=== PATIENT | female | born 1985 | race African-American/Black ===

== ENCOUNTER 2016-03-19 10:49 | Observation (INO) | payer OTHER | END 2016-03-19 11:40 | disposition home or self-care (01) | LOC: 3 SO LND 10:49 | PROVIDERS: ADMIT Family Medicine; ATTEND Family Medicine | DX: O41.03X0 Oligohydramnios, third trimester, not applicable or unspecified (principal); O09.299 Supervision of pregnancy with other poor reproductive or obstetric history, unspecified trimester; Z3A.36 36 weeks gestation of pregnancy | CPT/HCPCS: G0378; G0379 ==

== ENCOUNTER 2016-03-21 20:48 | Observation (INO) | payer OTHER ==
[2016-03-21] MEDS ORDERED: CEPHALEXIN 250 MG CAPSULE PO ONE (22:30)
== END 2016-03-21 22:42 | disposition home or self-care (01) ==
LOC: 3 SO LND 20:48
PROVIDERS: ADMIT Family Medicine; ATTEND Family Medicine
DX: O62.9 Abnormality of forces of labor, unspecified (principal); Z3A.36 36 weeks gestation of pregnancy
CPT/HCPCS: G0378; G0379

== ENCOUNTER 2016-03-30 12:31 | Observation (INO) | payer OTHER | END 2016-03-30 18:29 | disposition home or self-care (01) | LOC: 3 SO LND 12:31 | PROVIDERS: ADMIT Family Medicine; ATTEND Family Medicine | DX: O62.9 Abnormality of forces of labor, unspecified (principal); O26.853 Spotting complicating pregnancy, third trimester; O41.8X30 Other specified disorders of amniotic fluid and membranes, third trimester, not applicable or unspecified; Z3A.37 37 weeks gestation of pregnancy | CPT/HCPCS: G0378; G0379 ==

== ENCOUNTER 2016-04-04 08:25 | Inpatient (IN) | payer OTHER ==
[~2016-04-04] VITALS: Ht 154.9 cm; Wt 71.7 kg
[2016-04-04 09:18] VITALS: BP 134/62
[2016-04-04 09:29] LABS: NEG OBC AMNIO NEG; POS OBC AMNIO POS
[2016-04-04] MEDS ORDERED: IV RINGERS,LACTATED 1000ML 1,000 ML IV SCH (10:21)
[2016-04-04] MEDS ORDERED: BUTORPHANOL 2 MG VIAL. IV PRN (10:30)
[2016-04-04] MEDS ORDERED: TERBUTALINE 1 MG/ML VIAL. SQ PRN (10:30)
[2016-04-04] MEDS ORDERED: OXYTOCIN 30 UNIT/500 ML PREMIX 500 ML IV PRN ×2 (10:30→12:45)
[2016-04-04] MEDS ORDERED: LIDOCAINE 1% PF 30 ML VIAL. INJ PRN (10:30)
[2016-04-04] MEDS ORDERED: 0.9 % SODIUM CHLORIDE 10 ML DISP.SYRIN. IV PRN ×2 (10:30→12:45)
[2016-04-04] MEDS ORDERED: FENTANYL PF 100 MCG/2 ML VIAL. IV PRN (10:30)
[2016-04-04 10:49] VITALS: BP 134/62
[2016-04-04] MEDS ORDERED: OXYTOCIN in NORMAL SALINE PREMIX 30 UNIT/500 ML BAG. IV ONE (11:00)
[2016-04-04] MEDS ORDERED: AMPICILLIN 2 GM in IV NORMAL SALINE 100ML 100 ML IV ONE (11:00)
[2016-04-04] MEDS ORDERED: ROPIVacaine 0.2% IN 0.9%NACL PF 40 MG/20 ML DISP.SYRIN. ONE ×3 (11:00→11:42)
[2016-04-04] MEDS ORDERED: L&D EPIDURAL CASSETTE 100 ML PUMP.RESVR. EP ONE (11:00)
[2016-04-04 11:02] LABS: BASO # 0.1 x10^3/uL (0.0-0.2); BASO % 0 % (0-3); EOS % 0 % (0-3); HEMATOCRIT 38.8 % (36.0-47.0); HEMOGLOBIN 12.8 g/dL (12.0-15.5); LYMPH # 2.1 x10^3/uL (1.0-4.8); LYMPH % 13 % (24-48); MEAN CORPUSCULAR HEMOGLOBIN 29 pg (25-35); MEAN CORPUSCULAR HGB CONC 33 g/dL (31-37); MEAN CORPUSCULAR VOLUME 89 fL (79-100); MONO % 4 % (0-9); NEUT % 83 % (31-73); PLATELET COUNT 293 x10^3/uL (140-400); RED BLOOD COUNT 4.37 x10^6/uL (3.50-5.40); RED CELL DISTRIBUTION WIDTH 13.9 % (11.5-14.5); WHITE BLOOD COUNT 16.3 x10^3/uL (4.0-11.0)
[2016-04-04] MEDS ORDERED: L&D EPIDURAL CASSETTE 100 ML EP ONE (11:13)
[2016-04-04] MEDS ORDERED: MAGNESIUM HYDROXIDE 2,400 MG/30 ML ORAL.SUSP. PO PRN (12:45)
[2016-04-04] MEDS ORDERED: ZOLPIDEM 5 MG TABLET. PO PRN (12:45)
[2016-04-04] MEDS ORDERED: MAG HYDROX/AL HYDROX/SIMETH 30 ML ORAL.SUSP PO PRN (12:45)
[2016-04-04] MEDS ORDERED: BENZOCAINE 20% TOPICAL AEROSOL SPRAY 57GM CAN. TP PRN (12:45)
[2016-04-04] MEDS ORDERED: HYDROCORTISONE 1% TOPICAL OINTMENT 30GM TUBE. TP PRN (12:45)
[2016-04-04] MEDS ORDERED: HYDROCODONE/APAP 5/325MG TABLET. PO PRN ×2 (12:45)
[2016-04-04] MEDS ORDERED: SIMETHICONE 80 MG TAB.CHEW PO PRN (12:45)
[2016-04-04] MEDS ORDERED: ACETAMINOPHEN 325 MG TABLET. PO PRN (12:45)
[2016-04-04] MEDS ORDERED: PHENYLEPH/MINERAL OIL/PETROLAT RECTAL OINTMENT 28GM TUBE. RC PRN (12:45)
[2016-04-04] MEDS ORDERED: DIPHENHYDRAMINE HCL 25 MG CAPSULE PO PRN (12:45)
[2016-04-04] MEDS ORDERED: AMPICILLIN 1 GM in IV NORMAL SALINE 50ML 50 ML IV SCH (14:00)
--- NOTE | 2016-04-04 14:21 | PDOC1 ---
OB - History Hx of Present Care: Good Care Ultrasounds: Abnormal US findings (low alex) Obstetrical Complications: None Medical Complications: None Other Concerns: History of labor. demise at 28 weeks Past Family/Social History * Past Medical, Surgical, Family and Obstetric Histories reviewed from chart. Blood Type: B+ Rubella: Immune RPR/VDRL: Negative GBS Status: Positive HBsAG: Negative OB - Chief Complaint & HPI Date of Admission: Date of Admission: Apr 04, 2016 at 08:25 Chief Complaint/History : 5 Para: 3 EDC: Apr 15, 2016 Reason for admission: active labor Admission Nurse Assessment Rev: Yes Problems: OB - Admission Exam Physical Exam Vitals: VS - Last 72 Hours, by Label Date Time Temp Pulse Resp B/P Pulse Ox O2 Delivery O2 Flow Rate FiO2 04/04/16 10:49 98.0 100 20 134/62 98.0 04/04/16 09:18 98.0 100 20 134/62 Room Air 98.0 HEENT: Normal, Nasal Mucosa Normal, Oropharynx Normal, Moist Membranes, Fontanelles Normal Lungs: Clear, Equal Abdomen: Gravid Extremities: Normal Pulses, No tenderness or swelling Reflexes: Normal Cervical Dilatation: 4cm Effacement: 75% Station: -1 Membranes: Intact Amniotic Fluid: Clear Heart Rate: Normal Accelerations: Accelerations Present Decelerations: No decelerations Short Term Variability: Present Aligner Barrel And Receiver Variability: Moderate Contractions on Admission: < 5 Minutes Apart Intensity: AGUSTIN Poole MD Apr 04, 2016 14:20
[2016-04-04] MEDS: IBUPROFEN 800 MG TABLET. PO SCH (15:03)
[2016-04-04 15:35] VITALS: BP 126/77
[2016-04-04 16:35] VITALS: BP 120/70
--- NOTE | 2016-04-04 17:30 | OP ---
DATE OF SURGERY: 04/04/2016 DELIVERY NOTE: CHIEF COMPLAINT: Labor complaints. HOSPITAL COURSE: This patient is a 30-year-old with one delivery, AB2, female admitted at 38 weeks and 3 days with contractions and labor pain, dilating cervix from 2-4 cm during hospital preadmission. She was admitted in labor and progressed rapidly, did receive epidural anesthesia at 6 cm, progressed to complete having spontaneous rupture of membranes, late in labor course with clear fluid noted, delivering a viable male infant. The head was delivered and suctioned and subsequently the shoulders were delivered. had spontaneous cry after suctioning. Cord was clamped and transected. There were no gross abnormalities noted. was handed off. Placenta was then delivered intact with 3-vessel cord noted. Uterus was firm with Pitocin and palpation. There was approximately 250 mL blood loss. There were no vaginal lacerations. Mother and baby went to recovery in stable condition. Of note, mother was GBS positive and received one dose of IV antibiotics, ampicillin prior to delivery. Mother had risks of previous and low ANA LAURA on recent obstetrical sonogram. AGUSTIN GIL MD DR: SASCHA/karlee JOB#: [id number] / [id number]
[2016-04-04 20:44] VITALS: BP 124/73
[2016-04-04 23:56] VITALS: BP 118/75
[2016-04-05] MEDS: IBUPROFEN 800 MG TABLET. PO SCH ×3 (00:22→22:00)
[2016-04-05 05:00] VITALS: BP 114/72
[2016-04-05 06:30] LABS: BASO % 0 % (0-3); EOS % 0 % (0-3); HEMATOCRIT 29.8 % (36.0-47.0); HEMOGLOBIN 9.6 g/dL (12.0-15.5); LYMPH # 2.2 x10^3/uL (1.0-4.8); LYMPH % 12 % (24-48); MEAN CORPUSCULAR HEMOGLOBIN 30 pg (25-35); MEAN CORPUSCULAR HGB CONC 32 g/dL (31-37); MEAN CORPUSCULAR VOLUME 91 fL (79-100); MONO % 6 % (0-9); NEUT % 82 % (31-73); PLATELET COUNT 207 x10^3/uL (140-400); RED BLOOD COUNT 3.27 x10^6/uL (3.50-5.40); RED CELL DISTRIBUTION WIDTH 13.9 % (11.5-14.5)
[2016-04-05] MEDS: FERROUS SULFATE 325 MG TABLET PO SCH (08:00)
[2016-04-05 10:55] VITALS: BP 121/81
--- NOTE | 2016-04-05 16:35 | PDOC ---
PROGRESS NOTES Subjective Subjective Patient doing well day #1. Patient has decreased bleeding & decreased pain. Patient ambulating well and tolerating diet. Objective Objective Vital Signs Date Time Temp Pulse Resp B/P Pulse Ox O2 Delivery O2 Flow Rate FiO2 04/05/16 10:55 97.5 60 18 121/81 Room Air 97.5 04/05/16 05:00 99 Physical Exam Abdomen: Normal bowel sounds, Soft, No tenderness, No hepatosplenomegaly, No masses, Other (uterus firm under umbilicus.) Heart: Regular rate, Normal S1, Normal S2, No murmurs, Gallops Extremities: No clubbing, No cyanosis, No edema, Normal pulses, No tenderness/ swelling, Other (negative Homans sign) General: Alert, Oriented X3, Cooperative, No acute distress HEENT: Mucous membr. moist/pink Lungs: Clear to auscultation, Normal air movement MUSCULOSKELETAL: No joint tenderness, No deformity, No swelling, No muscular tenderness noted, Full range of motion without pain Neck: Supple, No JVD, No thyromegaly Neuro: Normal gait, Normal speech, Normal tone, Sensation intact, Reflexes 2+ Psych/Mental Status: Mental status NL, Mood NL Skin: No rashes, No breakdown, No significant lesion Assessment Assessment day #1. Plan Plan of Care Routine care. Comment Review of Relevant I have reviewed the following items fadia (where applicable) has been applied. Labs Laboratory Tests Test 04/04/16 09:02 04/04/16 10:30 04/05/16 06:05 Amniotic Fluid Swab Test Negative White Blood Count 16.3x10^3/uL (4.0-11.0) 19.0x10^3/uL (4.0-11.0) Red Blood Count 4.37x10^6/uL (3.50-5.40) 3.27x10^6/uL (3.50-5.40) Hemoglobin 12.8g/dL (12.0-15.5) 9.6g/dL (12.0-15.5) Hematocrit 38.8% (36.0-47.0) 29.8% (36.0-47.0) Mean Corpuscular Volume 89fL (79-100) 91fL (79-100) Mean Corpuscular Hemoglobin 29pg (25-35) 30pg (25-35) Mean Corpuscular Hemoglobin Concent 33g/dL (31-37) 32g/dL (31-37) Red Cell Distribution Width 13.9% (11.5-14.5) 13.9% (11.5-14.5) Platelet Count 293x10^3/uL (140-400) 207x10^3/uL (140-400) Neutrophils (%) (Auto) 83% (31-73) 82% (31-73) Lymphocytes (%) (Auto) 13% (24-48) 12% (24-48) Monocytes (%) (Auto) 4% (0-9) 6% (0-9) Eosinophils (%) (Auto) 0% (0-3) 0% (0-3) Basophils (%) (Auto) 0% (0-3) 0% (0-3) Neutrophils # (Auto) 13.5x10^3uL (1.8-7.7) 15.6x10^3uL (1.8-7.7) Lymphocytes # (Auto) 2.1x10^3/uL (1.0-4.8) 2.2x10^3/uL (1.0-4.8) Monocytes # (Auto) 0.7x10^3/uL (0.0-1.1) 1.1x10^3/uL (0.0-1.1) Eosinophils # (Auto) 0.0x10^3/uL (0.0-0.7) 0.0x10^3/uL (0.0-0.7) Basophils # (Auto) 0.1x10^3/uL (0.0-0.2) 0.0x10^3/uL (0.0-0.2) RPR Titer Additional Testing Non reactive (Non Reactive) Laboratory Tests Test 04/05/16 06:05 White Blood Count 19.0x10^3/uL (4.0-11.0) Red Blood Count 3.27x10^6/uL (3.50-5.40) Hemoglobin 9.6g/dL (12.0-15.5) Hematocrit 29.8% (36.0-47.0) Mean Corpuscular Volume 91fL (79-100) Mean Corpuscular Hemoglobin 30pg (25-35) Mean Corpuscular Hemoglobin Concent 32g/dL (31-37) Red Cell Distribution Width 13.9% (11.5-14.5) Platelet Count 207x10^3/uL (140-400) Neutrophils (%) (Auto) 82% (31-73) Lymphocytes (%) (Auto) 12% (24-48) Monocytes (%) (Auto) 6% (0-9) Eosinophils (%) (Auto) 0% (0-3) Basophils (%) (Auto) 0% (0-3) Neutrophils # (Auto) 15.6x10^3uL (1.8-7.7) Lymphocytes # (Auto) 2.2x10^3/uL (1.0-4.8) Monocytes # (Auto) 1.1x10^3/uL (0.0-1.1) Eosinophils # (Auto) 0.0x10^3/uL (0.0-0.7) Basophils # (Auto) 0.0x10^3/uL (0.0-0.2) Medications Current Medications Sodium Chloride 3 ml 3 ml QSHIFT PRN IV AFTER MEDS AND BLOOD DRAWS; Start 04/04 at 10:30; Stop 04/04/16 at 18:05; Status DC Lactated Ringer's (Iv Lactated Ringers) 1,000 ml @ 125 mls/hr Q8H IV Last administered on 04/04/16 10:41; Start 04/04/16 at 10:21 Butorphanol Tartrate (Stadol) 2 mg PRN Q1HR PRN IV Severe labor pain; Start at 10:30; Stop 04/04/16 at 18:05; Status DC Fentanyl Citrate (Fentanyl 2ml Vial) 100 mcg PRN Q20MIN PRN IV Labor pain Last administered on 04/04/16 10:41; Start 04/04/16 at 10:30; Stop 04/04/16 at 18:06 ; Status DC Terbutaline Sulfate (Brethine) 0.25 mg 1X PRN PRN SQ SEE COMMENTS; Start at 10:30; Stop 04/04/16 at 18:06; Status DC Lidocaine HCl 30 ml 30 ml 1X PRN PRN INJ SEE COMMENTS; Start 04/04/16 at 10:30 ; Stop 04/04/16 at 18:06; Status DC Ampicillin Sodium 2 gm/Sodium Chloride 100 ml @ 200 mls/hr 1X ONCE IV Last administered on 04/04/16t 10:49; Start 04/04/16 at 11:00; Stop 04/04/16 at 18:05 ; Status DC Ampicillin Sodium 1 gm/Sodium Chloride 50 ml @ 100 mls/hr Q4H IV ; Start at 14:00 Oxytocin/Sodium Chloride (Oxytocin Premix Infusion) 500 ml @ 0 mls/hr CONT PRN PRN IV Post delivery bleeding; Start 04/04/16 at 10:30 Ibuprofen 600 mg 600 mg PRN Q6HRS PRN PO PAIN; Start 04/04/16 at 10:30 Ropivacaine/ Fentanyl/NS (Ctajyvol-Ozuar-QM 3 Mcg-0.1%) 100 ml @ As Directed STK-MED ONCE EP ; Start 04/04/16 at 11:13; Stop 04/04/16 at 18:05; Status DC Ropivacaine 40 mg STK-MED ONCE .ROUTE ; Start 04/04/16 at 11:13; Stop 04/04/16 at 18:06; Status DC Ropivacaine 40 mg STK-MED ONCE .ROUTE ; Start 04/04/16 at 11:42; Stop 04/04/16 at 18:06; Status DC Sodium Chloride 10 ml 10 ml QSHIFT PRN IV AFTER MEDS AND BLOOD DRAWS; Start at 12:45 Oxytocin/Sodium Chloride (Oxytocin Premix Infusion) 500 ml @ 62.5 mls/hr CONT PRN IV SEE I/O RECORD; Start 04/04/16 at 12:45; Stop 04/04/16 at 20:44; Status DC Acetaminophen (Tylenol) 650 mg PRN Q6HRS PRN PO MILD PAIN / TEMP; Start at 12:45 Ibuprofen (Motrin) 800 mg Q8HRS PO Last administered on 04/05/16 08:39; Start 04/04/16 at 14:00 Magnesium Hydroxide (Milk Of Magnesia) 2,400 mg PRN DAILY PRN PO CONSTIPATION; Start 04/04/16 at 12:45 Al Hydroxide/Mg Hydroxide (Mylanta Plus Xs) 30 ml PRN Q4HRS PRN PO HEARTBURN / GAS; Start 04/04/16 at 12:45 Simethicone (Gas-X) 80 mg PRN AFTMEALHC PRN PO GAS / BLOATING; Start 04/04/16 at 12:45; Stop 04/04/16 at 18:06; Status DC Diphenhydramine HCl (Benadryl) 25 mg PRN Q6HRS PRN PO ITCHING; Start 04/04/16 at 12:45 Benzocaine (Americaine) 1 spray PRN QID PRN TP TOPICAL PAIN Last administered on 04/04/16t 15:03; Start 04/04/16 at 12:45 Phenyleph/Shark Oil/Min Oil/Petrol (Preparation H) 1 sandra PRN QID PRN RC RECTAL PAIN; Start 04/04/16 at 12:45 Hydrocortisone (Cortaid) 1 sandra PRN QID PRN TP PERINEAL PAIN; Start 04/04/16 at 12:45 Ferrous Sulfate (Feosol) 325 mg BIDWMEALS PO ; Start 04/05/16 at 08:00 Zolpidem Tartrate (Ambien) 5 mg PRN QHS PRN PO INSOMNIA, MAY REPEAT X1; Start 04/04/16 at 12:45 Info (Do NOT chart on this placeholder) 1 ea 1X PRN PRN MC SEE COMMENTS; Start 04/04/16 at 12:45 Acetaminophen/ Hydrocodone Bitart (Lortab 5/325) 1 tab PRN Q4HRS PRN PO MILD PAIN Last administered on 04/04/16 21:14; Start 04/04/16 at 12:45 Acetaminophen/ Hydrocodone Bitart (Lortab 5/325) 2 tab PRN Q4HRS PRN PO MODERATE PAIN, SEVERE PAIN Last administered on 04/05/16 08:40; Start 04/04/16 at 12:45 Ropivacaine/ Fentanyl/NS (Ywbpylnh-Bnhll-HC 3 Mcg-0.1%) 100 ml STK-MED ONCE EP ; Start 04/04/16 at 11:00; Stop 04/05/16 at 08:23; Status DC Oxytocin/Sodium Chloride (Oxytocin Premix Infusion) 30 unit STK-MED ONCE IV ; Start 04/04/16 at 11:00; Stop 04/05/16 at 08:23; Status DC Ropivacaine 80 mg STK-MED ONCE .ROUTE ; Start 04/04/16 at 11:00; Stop 04/05/16 at 08:23; Status DC Active Scripts Active Reported No Known Medications Prior To Admisstion (Info) Each 1 Each Vitals/I & O Vital Sign - Last 24 Hours 04/04/16 04/04/16 04/04/16 04/04/16 16:35 20:44 21:14 22:00 Temp 98.6 98.1 98.6 98.1 Pulse 82 85 Resp 18 20 B/P 120/70 124/73 Pulse Ox 98 O2 Delivery Room Air Room Air Room Air 04/04/16 04/05/16 04/05/16 04/05/16 23:56 05:00 08:40 10:55 Temp 97.6 97.6 97.5 97.6 97.6 97.5 Pulse 73 63 60 Resp 18 18 B/P 118/75 114/72 121/81 Pulse Ox 96 99 O2 Delivery Room Air Room Air Room Air AGUSTIN GIL MD Apr 05, 2016 16:35
[2016-04-05 17:30] VITALS: BP 110/57
[2016-04-05 20:56] VITALS: BP 117/70
[2016-04-06 05:00] VITALS: BP 122/80
[2016-04-06] MEDS: IBUPROFEN 600 MG TABLET. PO PRN ×2 (05:05→11:29)
[2016-04-06] MEDS: IBUPROFEN 800 MG TABLET. PO SCH (06:00)
--- NOTE | 2016-04-06 09:28 | PDOC3 ---
OB DISCHARGE SUMMARY DATE OF ADMISSION: 04/04/16 DATE OF DISCHARGE: 04/06/16 REASON FOR ADMISSION: Onset of labor PROBLEM LIST AT DISCHARGE Problems Medical Problems: (1) Term delivered Status: Acute DISCHARGE INFORMATION: Activity (no sexual activity 6 weeks), Diet (regular), Medications (see mrad), Discharge to (home) HOSPITAL COURSE Routine PP course CONDITION AT DISCHARGE AGUSTIN Wang MD Apr 06, 2016 09:28
[2016-04-06 09:30] VITALS: BP 119/68
[2016-04-06] MEDS: FERROUS SULFATE 325 MG TABLET PO SCH (09:30)
[2016-04-06 12:22] VITALS: BP 142/83
== END 2016-04-06 12:20 | disposition home or self-care (01) | DRG 775 ==
LOC: 3 SO LND 08:25 → OBSVTOIN 08:25 → 3 SO LND 19:30
PROVIDERS: ADMIT Family Medicine; ATTEND Family Medicine
PROC: 10E0XZZ Delivery of Products of Conception, External Approach (ICD-10-PCS; principal; 2016-04-04)
PROC: 3E0S3BZ Introduction of Anesthetic Agent into Epidural Space, Percutaneous Approach (ICD-10-PCS; 2016-04-04)
PROC: 00HU33Z Insertion of Infusion Device into Spinal Canal, Percutaneous Approach (ICD-10-PCS; 2016-04-04)
DX: O99.824 Streptococcus B carrier state complicating childbirth (principal); Z3A.38 38 weeks gestation of pregnancy; Z37.0 Single live birth
CPT/HCPCS: 36415; 84112; 85027; 86593; 86850; 86900; 86901; G0378; J0290; J2590; J2795; J3010; J7120

== ENCOUNTER → 2016-11-20 | Outpatient (CLI) | payer OTHER ==
--- NOTE | 2016-11-20 10:39 | RAD ---
Obstetrical ultrasound, 11/20/2016: History: Small for dates Transabdominal scans were obtained. There is a single intrauterine fetus demonstrating a crown-rump length of 4 cm. This suggests a gestational age of 10 weeks and 6 days yielding a sonographic EDC of 06/12/2017. activity and cardiac motion are present. The heart rate is 158 bpm. There is no evidence of subchorionic hemorrhage. The ovaries were not visualized. No free fluid is evident in the pelvis. IMPRESSION: Single viable intrauterine fetus of 10-11 weeks gestational age.
== END | disposition home or self-care (01) ==
LOC: US 09:46
PROVIDERS: ATTEND Family Medicine
DX: O36.5910 Maternal care for other known or suspected poor fetal growth, first trimester, not applicable or unspecified (principal); Z3A.11 11 weeks gestation of pregnancy
CPT/HCPCS: 76801

== ENCOUNTER → 2017-01-30 | Outpatient (CLI) | payer OTHER ==
--- NOTE | 2017-01-30 15:13 | RAD ---
EXAM: Obstetric ultrasound. HISTORY: Small for dates. COMPARISON: None. FINDINGS: Sonographic evaluation of the pelvis and fetus was performed transabdominally. The cervix is closed and measures 3.7 cm. There is a single fetus in breech presentation. Estimated gestational age based on measurements is 20 weeks 1 day. Estimated weight is 349 g. The individual measurements are commensurate. heart rate is 136 bpm. The placenta is fundal. Amniotic fluid index is normal at 10.2 cm. Images of the kidneys reveal no hydronephrosis. The stomach and bladder are visualized. Intracranial images reveal no hydrocephalus. The posterior fossa appears normal. Facial morphology appears normal. Images of the spine reveal no clear defects. The cord is three-vessel. The heart is four-chamber. The cord insertion appears normal. The profile appears normal. extremities appear normal. The sacrum is not well demonstrated given positioning. IMPRESSION: 1. Single fetus in breech presentation. Estimated gestational age based on measurements 20 weeks 1 day. heart rate 136 bpm. 2. The sacrum is not well visualized given positioning. Follow-up could be performed if there is persistent concern.
== END | disposition home or self-care (01) ==
LOC: US 12:53
PROVIDERS: ATTEND Family Medicine
DX: Z36.4 Encounter for antenatal screening for fetal growth retardation (principal); O36.5920 Maternal care for other known or suspected poor fetal growth, second trimester, not applicable or unspecified; O32.1XX0 Maternal care for breech presentation, not applicable or unspecified; Z3A.20 20 weeks gestation of pregnancy
CPT/HCPCS: 76805

== ENCOUNTER 2017-04-29 00:50 | Inpatient (IN) | payer OTHER ==
[2017-04-29] MEDS ORDERED: ONDANSETRON PF 4 MG/2 ML VIAL. IV (01:00)
[2017-04-29 01:14] LABS: BILIRUBIN,URINE SMALL (NEG); CLARITY,URINE CLOUDY; COLOR,URINE AMBER; GLUCOSE,URINE NEGATIVE (NEG); NITRITE,URINE NEGATIVE (NEG); PH,URINE 6.5; PROTEIN,URINE 30 mg/dL (NEG-TRACE)
[2017-04-29 01:20] LABS: BACTERIA,URINE MODERATE /HPF (0-FEW); RBC,URINE OCC /HPF (0-2); SQUAMOUS EPITHELIAL CELL,UR MOD /LPF; WBC,URINE TNTC /HPF (0-4)
[2017-04-29 01:23] LABS: BARBITURATES NEG (NEG); BENZODIAZEPINES NEG (NEG); CANNABINOIDS POS (NEG); COCAINE NEG (NEG); METHADONE NEG (NEG); OPIATES NEG (NEG); PHENCYCLIDINE NEG (NEG)
[2017-04-29 01:24] LABS: AMPHETAMINE/METHAMPHETAMINE NEG (NEG); ETHANOL, URINE NEG (NEG)
[2017-04-29] MEDS: IV RINGERS,LACTATED 1000ML 1,000 ML IV ×4 (01:28→09:47)
[2017-04-29] MEDS ORDERED: ceFAZolin SODIUM 1 GM in IV DEXTROSE 5% 50 ML IV (02:15)
[2017-04-29] MEDS: ceFAZolin SODIUM IV Push 1 GM VIAL. IVP (02:19)
[2017-04-29] MEDS: HYDROcodone/APAP 7.5/325MG 1 TAB TABLET PO (02:20)
[2017-04-29] MEDS ORDERED: TERBUTALINE 1 MG/ML VIAL. (04:22)
[2017-04-29] MEDS: TERBUTALINE 1 MG/ML VIAL. SQ (04:32)
[2017-04-29 10:43] LABS: ADD MAN DIFF? NO
[2017-04-29 10:46] LABS: BASO % 0 % (0-3); EOS % 0 % (0-3); HEMATOCRIT 30.7 % (36.0-47.0); HEMOGLOBIN 10.4 g/dL (12.0-15.5); LYMPH # 0.9 x10^3/uL (1.0-4.8); LYMPH % 15 % (24-48); MEAN CORPUSCULAR HEMOGLOBIN 30 pg (25-35); MEAN CORPUSCULAR HGB CONC 34 g/dL (31-37); MEAN CORPUSCULAR VOLUME 87 fL (79-100); MONO # 0.3 x10^3/uL (0.0-1.1); MONO % 4 % (0-9); NEUT % 80 % (31-73); PLATELET COUNT 258 x10^3/uL (140-400); RED BLOOD COUNT 3.53 x10^6/uL (3.50-5.40); WHITE BLOOD COUNT 6.3 x10^3/uL (4.0-11.0)
[2017-04-29 11:04] LABS: ALBUMIN 2.1 g/dL (3.4-5.0); ALBUMIN/GLOBULIN RATIO 0.5 (1.0-1.7); ALK PHOS 105 U/L (46-116); ALT (SGPT) 15 U/L (14-59); ANION GAP 5 (6-14); AST (SGOT) 29 U/L (15-37); BLOOD UREA NITROGEN 5 mg/dL (7-20); BUN/CREATININE RATIO 8 (6-20); CALCIUM 7.9 mg/dL (8.5-10.1); CARBON DIOXIDE 26 mmol/L (21-32); CHLORIDE 106 mmol/L (98-107); CREATININE 0.6 mg/dL (0.6-1.0); GFR 140.2; GLUCOSE 90 mg/dL (70-99); POTASSIUM 3.8 mmol/L (3.5-5.1); SODIUM 137 mmol/L (136-145); TOTAL BILIRUBIN 0.9 mg/dL (0.2-1.0); TOTAL PROTEIN 6.2 g/dL (6.4-8.2)
[2017-04-29] MEDS: IV DEXTROSE 5 %-0.45 % NACL 1,000 ML IV ×2 (11:04→16:34)
[2017-04-29] MEDS ORDERED: TERBUTALINE 1 MG/ML VIAL. SQ (12:15)
[2017-04-29] MEDS: cefTRIAXone IV Push 1 GM VIAL. IVP (12:35)
[2017-04-29] MEDS: ACETAMINOPHEN 325 MG TABLET. PO (22:07)
[2017-04-30] MEDS: IV RINGERS,LACTATED 1000ML 1,000 ML IV (00:32)
[2017-04-30] MEDS: ACETAMINOPHEN 325 MG TABLET. PO (07:56)
[2017-04-30] MEDS: cefTRIAXone IV Push 1 GM VIAL. IVP (12:10)
== END 2017-04-30 13:02 | disposition home or self-care (01) | DRG 781 ==
LOC: 3 SO LND 00:50
DX: O23.03 Infections of kidney in pregnancy, third trimester (principal); O60.03 Preterm labor without delivery, third trimester; E86.0 Dehydration; O26.893 Other specified pregnancy related conditions, third trimester; N12 Tubulo-interstitial nephritis, not specified as acute or chronic; Z3A.34 34 weeks gestation of pregnancy; Z82.49 Family history of ischemic heart disease and other diseases of the circulatory system
CPT/HCPCS: 36415; 76770; 76805; 80053; 80307; 81001; 83036; 84443; 85025; 86850; 86900; 86901; 87086; G0378; G0379; J0690; J0696; J3105; J7120

== ENCOUNTER 2017-05-31 08:10 | Inpatient (IN) | payer OTHER ==
[2017-05-31] MEDS ORDERED: TERBUTALINE 1 MG/ML VIAL. SQ (09:45)
[2017-05-31] MEDS ORDERED: 0.9 % SODIUM CHLORIDE 10 ML DISP.SYRIN. IV (09:45)
[2017-05-31] MEDS ORDERED: CITRIC ACID/SODIUM CITRATE 30 ML SOLUTION. PO (09:45)
[2017-05-31] MEDS ORDERED: ONDANSETRON PF 4 MG/2 ML VIAL. IV ×2 (09:45→14:00)
[2017-05-31] MEDS ORDERED: OXYTOCIN 30 UNIT/500 ML PREMIX 500 ML IV (09:45)
[2017-05-31] MEDS ORDERED: fentaNYL PF VIAL 100 MCG/2 ML VIAL IV ×2 (09:45)
[2017-05-31] MEDS ORDERED: IBUPROFEN 800 MG TABLET. PO (09:45)
[2017-05-31] MEDS ORDERED: BUTORPHANOL 2 MG/ML VIAL. IV ×2 (09:45)
[2017-05-31] MEDS ORDERED: DINOPROSTONE 10 MG SUPP.VAG VG (09:45)
[2017-05-31] MEDS ORDERED: LIDOCAINE 1% PF 30 ML VIAL. INJ (09:45)
[2017-05-31] MEDS: IV RINGERS,LACTATED 1000ML 1,000 ML IV ×2 (09:57→12:24)
[2017-05-31 11:07] LABS: ADD MAN DIFF? NO
[2017-05-31 11:15] LABS: BASO % 0 % (0-3); EOS % 0 % (0-3); HEMATOCRIT 35.2 % (36.0-47.0); HEMOGLOBIN 11.7 g/dL (12.0-15.5); LYMPH # 1.9 x10^3/uL (1.0-4.8); LYMPH % 26 % (24-48); MEAN CORPUSCULAR HEMOGLOBIN 28 pg (25-35); MEAN CORPUSCULAR HGB CONC 33 g/dL (31-37); MEAN CORPUSCULAR VOLUME 85 fL (79-100); MONO # 0.5 x10^3/uL (0.0-1.1); MONO % 6 % (0-9); NEUT # 4.8 x10^3uL (1.8-7.7); NEUT % 67 % (31-73); PLATELET COUNT 309 x10^3/uL (140-400); RED BLOOD COUNT 4.14 x10^6/uL (3.50-5.40); RED CELL DISTRIBUTION WIDTH 14.6 % (11.5-14.5); WHITE BLOOD COUNT 7.2 x10^3/uL (4.0-11.0)
[2017-05-31] MEDS: OXYTOCIN 30 UNIT/500 ML PREMIX 500 ML IV (12:24)
[2017-05-31] MEDS ORDERED: IV RINGERS,LACTATED 1000ML 1,000 ML IV (13:54)
[2017-05-31] MEDS ORDERED: fentaNYL PF VIAL 100 MCG/2 ML VIAL EPI (14:00)
[2017-05-31] MEDS ORDERED: NALOXONE 0.4 MG/ML VIAL. IV (14:00)
[2017-05-31] MEDS ORDERED: ePHEDrine PF IN SALINE 50 MG/5 ML DISP.SYRIN IV (14:00)
[2017-05-31] MEDS ORDERED: ROPIVacaine 0.2% IN 0.9%NACL PF 40 MG/20 ML DISP.SYRIN. EPI (14:00)
[2017-05-31] MEDS ORDERED: L&D EPIDURAL CASSETTE 100 ML EP (14:00)
[2017-05-31] MEDS ORDERED: LIDOCAINE 2% PF Vial for OR 5 ML VIAL. (14:36)
[2017-05-31] MEDS ORDERED: LIDOCAINE 1% PF 2 ML VIAL. ×2 (14:37→15:00)
[2017-05-31] MEDS ORDERED: L&D EPIDURAL SYRINGE 50 ML EP (14:45)
[2017-05-31] MEDS ORDERED: ROPIVacaine 0.2% PF 10 ML VIAL. ×2 (15:00→15:29)
[2017-05-31] MEDS ORDERED: L&D EPIDURAL 50 ML SYRINGE. EP (15:00)
[2017-05-31] MEDS: IBUPROFEN 800 MG TABLET. PO (22:59)
[2017-06-01] MEDS: HYDROcodone/APAP 5/325MG 1 TAB TABLET PO (05:49)
[2017-06-01 06:50] LABS: HEMATOCRIT 30.8 % (36.0-47.0); HEMOGLOBIN 9.9 g/dL (12.0-15.5); MEAN CORPUSCULAR HEMOGLOBIN 28 pg (25-35); MEAN CORPUSCULAR HGB CONC 32 g/dL (31-37); MEAN CORPUSCULAR VOLUME 86 fL (79-100); PLATELET COUNT 258 x10^3/uL (140-400); RED BLOOD COUNT 3.58 x10^6/uL (3.50-5.40); RED CELL DISTRIBUTION WIDTH 14.7 % (11.5-14.5)
[2017-06-01] MEDS: IBUPROFEN 800 MG TABLET. PO ×2 (10:19→19:40)
[2017-06-01] MEDS ORDERED: FERROUS SULFATE 325 MG TABLET. PO (12:00)
[2017-06-02] MEDS: HYDROcodone/APAP 5/325MG 1 TAB TABLET PO ×2 (01:51→13:04)
[2017-06-02] MEDS: MAG HYDROX/ALUMINUM HYD/SIMETH 30 ML ORAL.SUSP PO (02:00)
[2017-06-02 06:13] LABS: RPR Non Reactive (Non Reactive)
[2017-06-02] MEDS: IBUPROFEN 800 MG TABLET. PO (08:18)
[2017-06-02] MEDS: DIPHTH,PERTUSS(ACELL),TET TOX 0.5 ML DISP.SYRIN. VAX IM (12:44)
[2017-06-02] MEDS: MEASLES, MUMPS & RUBELLA VACC 0.5 ML VIAL. VAX SQ (12:46)
== END 2017-06-02 15:01 | disposition home or self-care (01) | DRG 775 ==
LOC: 3 SO LND 08:10
PROC: 10907ZC Drainage of Amniotic Fluid, Therapeutic from Products of Conception, Via Natural or Artificial Opening (ICD-10-PCS; principal; 2017-05-31)
PROC: 10E0XZZ Delivery of Products of Conception, External Approach (ICD-10-PCS; 2017-05-31)
PROC: 3E0234Z Introduction of Serum, Toxoid and Vaccine into Muscle, Percutaneous Approach (ICD-10-PCS; 2017-05-31)
DX: O69.81X0 Labor and delivery complicated by cord around neck, without compression, not applicable or unspecified (principal); Z23 Encounter for immunization; Z37.0 Single live birth
CPT/HCPCS: 36415; 85025; 85027; 86593; 86850; 86900; 86901; 90707; 90715; G0378; J2590; J2795; J7120